=== PATIENT | male | born 1930 | race Caucasian/White ===

== ENCOUNTER 2017-08-05 15:46 | Outpatient (CLI) | payer MEDICARE | END 2017-08-05 15:47 | disposition home or self-care (01) | LOC: BICRAD 15:46 | PROVIDERS: ATTEND Internal Medicine | DX: R07.9 Chest pain, unspecified (principal); Z79.899 Other long term (current) drug therapy | CPT/HCPCS: 71046 ==

== ENCOUNTER 2018-04-21 09:27 | Observation (INO) | payer MEDICARE ==
[2018-04-21 10:21] LABS: #Eosinphils 0.3 thou/uL (0.0-0.7); #Lymphocytes 2.4 thou/uL (1.20-3.40); #Monocytes 0.6 thou/uL (0.11-0.59); #Neutrophils 4.1 thou/uL (1.40-6.50); %Basophils 0.5 % (0.0-1.0); %Eosinophils 3.4 % (0.0-10.0); %Lymphocytes 32.3 % (21.0-51.0); %Monocytes 8.3 % (0.0-10.0); %Neutrophils 55.5 % (42.0-75.0); Hemoglobin 13.1 g/dL (14.0-18.0); Mean Corpuscular HGB CONC 32.2 g/dL (32.0-36.0); Mean Corpuscular Hemoglobin 32.6 pg (27.0-31.0); Mean Platelet Volume 7.9 fL (7.4-10.4); Platelet Count 225 thou/uL (130-400); RBC Distribution Width 11.6 % (11.5-14.5); White Blood Cell (WBC) Count 7.4 thou/uL (4.8-10.8)
[2018-04-21 10:31] LABS: ALT (SGPT) 13 U/L (8-55); AST (SGOT) 19 U/L (5-34); Albumin 3.7 g/dL (3.4-4.8); Alkaline Phosphatase 77 U/L (40-150); Anion Gap 13 mmol/L (10-20); BUN (Urea Nitrogen) 23 mg/dL (8.4-25.7); Bilirubin, Total 0.4 mg/dL (0.2-1.2); CK (CPK) 172 U/L (30-200); Calc. Creatinine Clearance 0 mL/min (70-130); Calcium 9.6 mg/dL (7.8-10.44); Carbon Dioxide 25 mmol/L (23-31); Chloride 103 mmol/L (98-107); Estimated GFR-MDRD 56; Globulin 2.6 g/dL (2.4-3.5); Glucose 134 mg/dL (83-110); Protein, Total 6.3 g/dL (5.8-8.1); Sodium 137 mmol/L (136-145)
[2018-04-21 10:36] LABS: CKMB 5.1 ng/mL (0-6.6); Troponin I Less than 0.010 ng/mL (< 0.028)
--- NOTE | 2018-04-21 11:40 | RAD ---
CHEST 1 VIEW: Date: 04/21/18 INDICATION: History of syncope. COMPARISON: Prior exam dated 06/17/12, as well as 08/05/17. FINDINGS: There is stable mild cardiomegaly. Lungs are clear. No pleural effusion or pneumothorax is evident. N o acute osseous abnormality is evident. IMPRESSION: No acute cardiopulmonary abnormality. POS: [facility]
--- NOTE | 2018-04-21 15:36 | ULT ---
CAROTID ULTRASOUND WITH TADEO SCALE AND DOPPLER DUPLEX COLOR FLOW IMAGING SPECTRAL ANALYSIS PERFORMED: DATE: 04/21/18 CLINICAL INDICATION: Syncope. FINDINGS: There is mild scattered atherosclerotic calcification of the carotid arteries. PEAK SYSTOLIC VELOCITY (CM/S): Right CCA 68 Left CCA 92 Right ICA 46 Left ICA 61 There is antegrade flow within the visualized bilateral vertebral arteries. IMPRESSION: 1. No hemodynamically significant stenosis of the right internal carotid artery. 2. No hemodynamically significant stenosis of the left internal carotid artery. POS: [facility]
[2018-04-21 15:56] LABS: Troponin I 0.014 ng/mL (< 0.028)
[2018-04-21] MEDS ORDERED: Acetaminophen 325 MG TAB PO PRN (16:30)
[2018-04-21] MEDS ORDERED: Sodium Chloride 0.9% 1,000 ML IV SCH (16:30)
[2018-04-21] MEDS ORDERED: Ondansetron ODT 4 MG TAB PO PRN (16:30)
[2018-04-21] MEDS ORDERED: Ondansetron PF 4 MG/2 ML Vial IVP PRN (16:30)
[2018-04-21 16:43] VITALS: BMI 26.6
[2018-04-21] MEDS: Tamsulosin HCl 0.4 MG CAP PO SCH (20:02)
[2018-04-21] MEDS: Famotidine 20 MG TAB PO SCH (20:02)
[2018-04-21] MEDS: Sodium Chloride 0.9% 1,000 ML IV SCH (20:03)
[2018-04-22] MEDS: Sodium Chloride 0.9% 1,000 ML IV SCH (00:10)
[2018-04-22 06:45] LABS: #Eosinphils 0.2 thou/uL (0.0-0.7); #Lymphocytes 2.2 thou/uL (1.20-3.40); #Monocytes 0.7 thou/uL (0.11-0.59); #Neutrophils 3.7 thou/uL (1.40-6.50); %Basophils 0.5 % (0.0-1.0); %Eosinophils 3.6 % (0.0-10.0); %Monocytes 10.6 % (0.0-10.0); %Neutrophils 53.4 % (42.0-75.0); Hemoglobin 14.7 g/dL (14.0-18.0); Mean Corpuscular HGB CONC 32.7 g/dL (32.0-36.0); Mean Corpuscular Hemoglobin 33.1 pg (27.0-31.0); Mean Platelet Volume 7.8 fL (7.4-10.4); Platelet Count 228 thou/uL (130-400); RBC Distribution Width 11.6 % (11.5-14.5); Red Blood Cell (RBC) Count 4.45 mill/uL (4.70-6.10)
[2018-04-22 07:04] LABS: Anion Gap 10 mmol/L (10-20); BUN (Urea Nitrogen) 17 mg/dL (8.4-25.7); Calc. Creatinine Clearance 54 mL/min (70-130); Calcium 9.3 mg/dL (7.8-10.44); Carbon Dioxide 27 mmol/L (23-31); Chloride 106 mmol/L (98-107); Estimated GFR-MDRD 59; Glucose 135 mg/dL (83-110); Potassium 4.1 mmol/L (3.5-5.1); Sodium 139 mmol/L (136-145)
[2018-04-22] MEDS: Aspirin 81 mg Enteric Coated Tablet PO SCH (07:59)
[2018-04-22] MEDS: Famotidine 20 MG TAB PO SCH ×2 (07:59→21:17)
--- NOTE | 2018-04-22 09:23 | HP ---
PRIMARY CARE PHYSICIAN: Dr. Sheehan. CHIEF COMPLAINT: Syncope. HISTORY OF PRESENT ILLNESS: Mr. Lopez is a pleasant 88-year-old male with past medical history of atrial flutter status post ablation, diabetes type 2, hyperlipidemia, hypertension, who had presented to [facility] after being seen at Dr. Mccarthy's office, there he had been noticed to have an episode of lower blood pressure with the systolic blood pressure in the 90s, he had become dizzy and lightheaded and was helped to the ground in the office by staff members. He was transported to [facility]. Upon arrival to the ER, he had no further complaints of chest pain, shortness of breath, or abdominal pain. He had denied any recent fever, chills, cough, or any other recent illness. He had denied any vomiting or diarrhea. He had similar symptoms back in 2012. On EKG, it was noted that he had a second-degree type I block with the rate in the 70s. He was started on IV fluids in the ER and will ultimately be observed overnight for workup of his syncopal-like episode. Dr. Mccarthy was contacted and would like the patient to undergo carotid ultrasound along with an echocardiogram during hospital course. Prior to arriving to the floor, he had undergone a carotid Doppler, which showed no significant stenosis in right or left internal carotid arteries. He also underwent a chest x-ray, which showed no acute cardiopulmonary abnormality. PAST MEDICAL HISTORY: The patient has a history of type 2 diabetes, hyperlipidemia, hypertension, osteoarthritis, and past medical history of atrial flutter status post ablation. PAST SURGICAL HISTORY: Cardiac ablation, bilateral cataract surgery, right hand carpal tunnel, tonsillectomy, and surgery on the right leg. PAST PSYCHIATRIC HISTORY: There is no previous history of psychiatric disorder. SOCIAL HISTORY: Denies any alcohol use, smoking, or any other drug use. REVIEW OF SYSTEMS: CONSTITUTIONAL: Denies fever or chills. Denies generalized weakness, did report with a syncopal episode; however, no further syncope-like episode since admission. RESPIRATORY: Denies cough or sputum production or shortness of breath. CARDIOVASCULAR: No chest pain or palpitations. GASTROINTESTINAL: No nausea or vomiting. No diarrhea or abdominal pain. NERVOUS SYSTEM: Denies dizziness, headache, or lightheadedness. GENITOURINARY: Denies any burning on urination. EXTREMITIES: Denies any leg pain, swelling, or trauma. ALLERGIES: NO KNOWN DRUG ALLERGIES. HOME MEDICATIONS: The patient reports: 1. Tamsulosin 0.4 mg p.o. at bedtime. 2. Simvastatin 40 mg p.o. at bedtime. 3. Nitroglycerin 0.3 mg sublingual p.o. p.r.n. chest pain. 4. Clopidogrel 75 mg p.o. daily. 5. Metformin 1000 mg p.o. b.i.d. 6. Loratadine 10 mg p.o. daily. 7. Lisinopril/hydrochlorothiazide 20/25 mg p.o. daily. 8. Isosorbide mononitrate 30 mg p.o. daily. 9. Glipizide 5 mg p.o. b.i.d. 10. Centrum Silver multivitamin one tablet p.o. daily. 11. Finasteride 5 mg p.o. daily. 12. Aspirin 81 mg daily. PHYSICAL EXAMINATION: VITAL SIGNS: BP 133/60, pulse 68, respirations 20, temperature 97.9, O2 saturation 96% on room air. GENERAL: The patient is alert, oriented x3, in no acute distress. HEENT: Eyes, normal conjunctivae. Pupils equal and reactive to light. Extraocular muscles intact. Moist mucous membranes. Head is atraumatic, normocephalic. NECK: No JVD. Neck is supple, soft. No bruits. RESPIRATORY: Clear to auscultation bilaterally. No wheezes or rhonchi noted. CARDIOVASCULAR: Positive S1 and S2. Diastolic murmur present, grade 3/6. EKG showing second-degree type I block. ABDOMEN: Soft, nontender, nondistended. Bowel sounds present. MUSCULOSKELETAL: Strength 5+ bilaterally in upper and lower extremities. Moves all extremities equally. No edema noted. Radial and pedal pulses 2+ bilaterally. NEUROLOGIC: Cranial nerves 2 through 12 intact. No focal deficits noted. Gait and speech are normal. SKIN: Warm, dry, and intact. No rashes noted. PSYCHIATRIC: Good mood. No anxiety. Optimal judgment. LABORATORY DATA: WBC 7.4, RBC 4.0, hemoglobin 13.1, platelets 225,000. Sodium 137, potassium 4.0, creatinine 1.22, glucose 134. Estimated GFR 56. AST 19, ALT 13, alkaline phosphatase 77, creatine kinase 172. CK-MB 5.1. Troponin negative x3. BNP 80.8. IMAGING STUDIES: Chest x-ray showed no acute cardiopulmonary process. Carotid Doppler showed no significant stenosis in the right or left internal carotid arteries. ASSESSMENT AND PLAN: 1. Syncope likely secondary to orthostatic hypotension. We will obtain orthostatic vital signs. Continue IV fluid hydration with normal saline at 100 mL an hour. Carotid ultrasound was unremarkable. Check echocardiogram for cardiogenic etiology. Depending on the results, we may consult with commercial door installer, Dr. Mccarthy for further evaluation of symptoms. 2. History of hypertension. We will monitor vital signs closely, we will continue the patient's home medications. 3. Hyperlipidemia. We will continue on home statin therapy. 4. Second-degree type I AV block. Continue to monitor closely. Continue symptom management. No further treatment at this time. 5. Deep venous thrombosis prophylaxis and gastrointestinal prophylaxis. Disposition and further medical management pending patient's progress for syncope and also the patient's progress. Job ID: [id number] [facility]
[2018-04-22] MEDS ORDERED: Lisinopril 10 MG TAB PO SCH (13:30)
--- NOTE | 2018-04-22 14:16 | PDOC.PN ---
- Subjective Encounter Start Date: 04/22/18 Encounter Start Time: 14:12 Patient lying in bed, no events over night. He had a noticed pause on telemetry this morning, but he remained asymptomatic. Echo returned EF of 50-55% with mild -moderate aortic stenosis. Patient initial EKG showed Second degree type 1 block , but Dr Mccarthy is concerned for worsening AV block with bifascicular block. - Objective Resuscitation Status - Order Detail: 04/21/18 16:30 Resuscitation Status Routine Co-Sign Provider: Resuscitation Status: FULL: Full Resuscitation Discussed with: Patient and MACHO Reviewed: Yes Vital Signs & Weight: Vital Signs (12 hours) Temp Pulse Resp BP BP BP BP 04/22/18 11:10 97.5 F L 53 L 16 168/78 H 153/71 H 177/70 H 04/22/18 08:04 98.2 F 67 16 143/65 H 04/22/18 03:38 97.5 F L 70 16 124/55 L Pulse Ox 04/22/18 11:10 95 04/22/18 08:04 100 04/22/18 03:38 96 Weight Weight 193 lb 1.6 oz I&O: 04/21/18 04/22/18 04/23/18 06:59 06:59 06:59 Intake Total 1189 Output Total 875 500 Balance 314 -500 Result Diagrams: 04/22/18 06:27 04/22/18 06:27 Additional Labs: Accuchecks 04/22/18 04/22/18 04/21/18 11:17 05:50 21:26 POC Glucose 145 H 119 H 112 H 04/21/18 17:10 POC Glucose 171 H Radiology Reviewed by me: Yes EKG Reviewed by me: Yes Phys Exam - Physical Examination Constitutional: NAD HEENT: PERRLA, moist MMs, oral pharynx no lesions Neck: no nodes, no JVD, supple Respiratory: no wheezing, no rales, clear to auscultation bilateral Cardiovascular: no significant murmur, no rub Gastrointestinal: soft, non-tender, no distention, positive bowel sounds Musculoskeletal: no edema, pulses present Neurological: non-focal, normal sensation, moves all 4 limbs Lymphatic: no nodes Psychiatric: normal affect, A&O x 3 Skin: no rash, normal turgor, cap refill <2 seconds Dx/Plan - Plan cont current plan of care * Patient symptoms resolved after IV fluids with normal saline, BP up now therefore will restart on lisinopril 10mg daily, will hold off HCTZ for now. * Case discussed with Dr Mccarthy who is concerned for heart block, Dr Ferreira will be consulted with possible pacemaker in future. * Await further recommendations, continue current medical management for now.
--- NOTE | 2018-04-22 14:47 | PRG ---
DATE OF SERVICE: 04/21/2018 ADDENDUM: Mr. Lopez' syncopal episode appeared to be orthostatic hypotension. We were stopping the Lisinopril-Hctz and amlodipine, resuming the tamsulosin. Echocardiogram for tomorrow. Possibly home tomorrow if doing well. He also has second-degree type 1 AV block. No indication for pacemaker at this time. Job ID: [id number]
[2018-04-22] MEDS: Tamsulosin HCl 0.4 MG CAP PO SCH (21:17)
[2018-04-23] MEDS ORDERED: CEFAZOLIN 2 GM/50 ML BAG ONE (06:55)
[2018-04-23] MEDS ORDERED: Midazolam HCl 2 mg/2 ml Vial ONE (07:59)
[2018-04-23] MEDS ORDERED: Fentanyl 100 MCG/2 ML VIAL ONE (07:59)
[2018-04-23] MEDS ORDERED: Lidocaine 1% (PF) 30 ML VIAL ONE (08:34)
[2018-04-23] MEDS ORDERED: Acetaminophen/Codeine 30-300mg Tablet PO PRN ×2 (10:15)
[2018-04-23] MEDS: Aspirin 81 mg Enteric Coated Tablet PO SCH (10:42)
[2018-04-23] MEDS: Famotidine 20 MG TAB PO SCH ×2 (10:42→21:05)
[2018-04-23] MEDS: Lisinopril 10 MG TAB PO SCH (10:42)
[2018-04-23] MEDS ORDERED: Iopamidol 370 76% 50 ML VIAL FS ONE (13:09)
[2018-04-23] MEDS: Cephalexin 250 MG CAP PO SCH ×2 (15:11→21:05)
--- NOTE | 2018-04-23 18:22 | PDOC.PN ---
- Subjective Encounter Start Date: 04/23/18 Encounter Start Time: 14:00 Patient lying in bed s/p pacemaker placement. He reports feeling okay, no complaints. Denies chest pain, shortness of breath, abdominal pain. No syncope or dizziness. - Objective Resuscitation Status - Order Detail: 04/21/18 16:30 Resuscitation Status Routine Co-Sign Provider: Resuscitation Status: FULL: Full Resuscitation Discussed with: Patient and MAR Reviewed: Yes Vital Signs & Weight: Vital Signs (12 hours) Temp Pulse Resp BP BP Pulse Ox 04/23/18 15:24 98.0 F 85 16 158/71 H 98 04/23/18 10:55 97.5 F L 60 20 111/58 L 96 04/23/18 10:42 131/60 04/23/18 09:19 98.3 F 74 16 123/61 93 L Weight Weight 193 lb 1.6 oz I&O: 04/22/18 04/23/18 04/24/18 06:59 06:59 06:59 Intake Total 1189 1050 Output Total 875 1950 200 Balance 314 -900 -200 Result Diagrams: 04/22/18 06:27 04/22/18 06:27 Additional Labs: Accuchecks 04/23/18 04/23/18 04/23/18 16:46 11:00 06:32 POC Glucose 280 H 159 H 158 H 04/22/18 20:25 POC Glucose 221 H Radiology Reviewed by me: Yes EKG Reviewed by me: Yes Phys Exam - Physical Examination Constitutional: NAD HEENT: PERRLA, moist MMs, oral pharynx no lesions Neck: no nodes, no JVD, supple Respiratory: no wheezing, no rales, no rhonchi, clear to auscultation bilateral Cardiovascular: RRR, no significant murmur, no rub Gastrointestinal: soft, non-tender, no distention, positive bowel sounds Musculoskeletal: no edema, pulses present Neurological: non-focal, normal sensation, moves all 4 limbs Lymphatic: no nodes Psychiatric: normal affect, A&O x 3 Skin: no rash, cap refill <2 seconds Deviation from normal: Incision clean and dry intact. Dx/Plan - Plan cont current plan of care, continue antibiotics * Patient s/p pacemaker placement this morning. * Plan to continue abx per Dr Ferreira * Hold overnight and likely discharge in the morning * Continue medical management * Further management or changes pending patient progress.
[2018-04-23] MEDS: Tamsulosin HCl 0.4 MG CAP PO SCH (21:05)
--- NOTE | 2018-04-24 08:33 | RAD ---
CHEST 1 VIEW: INDICATION: Pacemaker placement. COMPARISON: Prior exam dated 04/21/2018. FINDINGS: There is a new dual-lead pacemaker overlying the left chest wall. The leads project in the expected position. No pleural effusion or pneumothorax is evident. Osseous structures are unchanged. IMPRESSION: Interval placement of a new dual-lead pacemaker without evidence of pneumothorax. POS: [facility]
--- NOTE | 2018-04-24 08:50 | CON ---
DATE OF CONSULTATION: 04/22/2018 ELECTROPHYSIOLOGY CONSULTATION REFERRING PHYSICIAN: Dr. Mccarthy. I am seeing Mr. Lopez at our [facility] for electrophysiology consultation for the following problems: 1. Syncopal spell. 2. Abnormal EKG with baseline trifascicular block with episodic 2:1 AV block and Mobitz type 1 second-degree AV block. 3. Preserved LVEF at 55% to 60%, [id number] aortic stenosis, 30 mmHg mean gradient, trace mitral regurgitation, mild tricuspid regurgitation on echo on 04/22/2018. 4. History of atrial flutter, status post ablation. 5. Risk factors including diabetes, hyperlipidemia, and hypertension. 6. Mild atherosclerosis in carotid arterial ultrasound. No significant stenosis. ALLERGIES: NONE NOTED. MEDICATIONS: At home included: 1. Tamsulosin. 2. Simvastatin. 3. Nitroglycerin. 4. Clopidogrel. 5. Metformin. 6. Loratadine. 7. Lisinopril. 8. Isosorbide mononitrate. 9. Glipizide. 10. Multivitamin. 11. Finasteride. 12. Aspirin. SUBJECTIVE: Mr. Lopez is here with symptoms of syncopal spell. This happened at Dr. Mccarthy's office. His blood pressure was running low on that day in the 90s and he was also noted to have an abnormal EKG as above. He was subsequently brought to the ER. He got fluids. His blood pressure improved. He continues to have Mobitz type 1 second-degree AV block and also has underlying trifascicular block. REVIEW OF SYSTEMS: The patient has chest pain. No fever, chills, or cough. No PND, orthopnea, or lower extremity edema or excess fluid overload. No stroke-like symptoms. No neurological deficit. No bleeding issues documented. Rest of the 12-point systems otherwise unremarkable. PAST MEDICAL HISTORY: As above. PAST SURGICAL HISTORY: Significant for bilateral cataract surgery, right hand carpal tunnel release, tonsillectomy, and surgery on the right leg, as well as cardiac ablation. FAMILY HISTORY: Noncontributory. SOCIAL HISTORY: The patient denies smoking, EtOH, or drug use. Lives with his . OBJECTIVE: VITAL SIGNS: Blood pressure is 131/60, heart rate 80, and respirations 18. Temperature, the patient is afebrile. GENERAL: This is an alert and oriented man, in no apparent distress. NECK: Supple. Jugular vein is not distended. CHEST: Coarse. No crackles. HEART: Heart sounds are regular rate and rhythm. No murmur or gallops. ABDOMEN: Benign. Bowel sounds positive. EXTREMITIES: Lower extremities; no edema, clubbing, or cyanosis. Pulses are adequate. NEUROLOGIC: Nonfocal. MUSCULOSKELETAL: No joint deformities. DATABASE: EKG was reviewed revealing baseline sinus rhythm, atypical right bundle, left axis deviation, first-degree AV block trifascicular block, and also Mobitz type I second-degree AV block episodes are noted. Short stretches of 2:1 AV block was seen on telemetry. LABORATORY DATA: White count 7, hemoglobin 13.1, platelet count is 225. Sodium 139, potassium 4.1, BUN 17, creatinine 1.17. Troponin I is 0.02. BNP 80. IMAGING STUDIES: The chest x-ray shows no acute cardiopulmonary abnormalities. ASSESSMENT AND PLAN: Mr. Lopez is a pleasant 88-year-old man with history of flutter ablation, normal LVEF, [id number] aortic stenosis, who presents with a syncopal spell. Etiology of the syncopal spell is likely multi etiological. Naturally, the lower blood pressures and his mild aortic stenosis could play some role, although the aortic stenosis might not be hemodynamically significant. On the other hand, significant AV block could also contribute to his symptoms. At this point, I suspect significant conduction disease based on the baseline conduction abnormalities and progression is likely. For this reason, it is reasonable to proceed with the pacemaker implantation. We discussed pros and cons about this, and he is willing to proceed. Risk of infection, bleeding, pneumothorax, tamponade, device malfunction were discussed and reviewed. Plan to proceed with the procedure. Thank you again for allowing me to participate in this patient's care. Job ID: [id number]
[2018-04-24] MEDS: Cephalexin 250 MG CAP PO SCH (09:28)
[2018-04-24] MEDS: Lisinopril 10 MG TAB PO SCH (09:28)
[2018-04-24] MEDS: Aspirin 81 mg Enteric Coated Tablet PO SCH (09:28)
[2018-04-24] MEDS: Famotidine 20 MG TAB PO SCH (09:28)
[2018-04-24 11:46] VITALS: BP 128/78; TEMP 99
--- NOTE | 2018-04-24 11:56 | PRG ---
DATE OF SERVICE: 04/24/2018 SUBJECTIVE: Mr. Lopez underwent successful pacemaker implantation yesterday. OBJECTIVE: VITAL SIGNS: Blood pressure 136/63, pulse 70. LUNGS: Clear. CARDIAC: Normal S1. Normal S2. ASSESSMENT: 1. Status post syncopal episode, probably due to AV block. 2. Status post dual-chamber pacemaker insertion. The right ventricular lead placed on the septum. PLAN: 1. We have reduced the blood pressure medicine, and he is now on lisinopril 10 mg a day and Flomax 0.4 mg at bedtime and to also stop Plavix. 2. He will see us in a couple of weeks. 3. Discussed that he could still have orthostatic hypotension and should sit down quickly if he feels lightheaded. Job ID: [id number]
--- NOTE | 2018-04-25 17:52 | EKG ---
Test Reason : Blood Pressure : / mmHG Vent. Rate : 066 BPM Atrial Rate : 066 BPM P-R Int : 000 ms QRS Dur : 120 ms QT Int : 418 ms P-R-T Axes : 000 -56 088 degrees QTc Int : 438 ms Sinus rhythm with marked sinus arrhythmia with 1st degree A-V block Right bundle branch block Left anterior fascicular block Bifascicular block Left ventricular hypertrophy with repolarization abnormality Abnormal ECG Confirmed by JONATHAN SUE ([id number]), acquisitions editor NAVID CASH ([id number]) on 04/25/2018 5:51:51 PM Referred By: Confirmed By:JONATHAN SUE
== END 2018-04-24 13:27 | disposition home or self-care (01) ==
LOC: ERS 09:27 → 2SW 11:40
PROVIDERS: ADMIT Family Medicine; ATTEND Family Medicine
PROC: 0JH606Z Insertion of Pacemaker, Dual Chamber into Chest Subcutaneous Tissue and Fascia, Open Approach (ICD-10-PCS; principal; 2018-04-23)
PROC: 02H63JZ Insertion of Pacemaker Lead into Right Atrium, Percutaneous Approach (ICD-10-PCS; 2018-04-23)
PROC: 02HK3JZ Insertion of Pacemaker Lead into Right Ventricle, Percutaneous Approach (ICD-10-PCS; 2018-04-23)
DX: R55 Syncope and collapse (principal); I49.5 Sick sinus syndrome; E11.9 Type 2 diabetes mellitus without complications; E78.5 Hyperlipidemia, unspecified; I44.1 Atrioventricular block, second degree; I35.0 Nonrheumatic aortic (valve) stenosis; I10 Essential (primary) hypertension; I48.92 Unspecified atrial flutter; M19.90 Unspecified osteoarthritis, unspecified site; Z79.02 Long term (current) use of antithrombotics/antiplatelets; Z79.82 Long term (current) use of aspirin; Z79.84 Long term (current) use of oral hypoglycemic drugs; Z79.899 Other long term (current) drug therapy
CPT/HCPCS: 33208; 36005; 71045 ×2; 75820; 80048; 80053; 82550; 82553; 82962 ×4; 83880; 84484 ×2; 85025 ×2; 93005; 93306; 93798; 93880; 94760; 96360; 96361 ×3; 99285; C1785; C1898 ×2; G0378 ×3; 36415; 36416; 99152; 99153; J2001; J2250; J3010; J3490